=== PATIENT | male | born 1955 | race Hispanic/Latino ===

== ENCOUNTER 2020-11-05 15:00 | Emergency (ER) | payer BC ==
[~2020-11-05] VITALS: Ht 180.3 cm; Wt 115.2 kg
[2020-11-05] MEDS ORDERED: 0.9%NACL 1000ML 1,000 ML IV ONE ×2 (15:01→15:15)
[2020-11-05] MEDS ORDERED: ACETAMINOPHEN 500 MG TABLET PO ONE (15:15)
[2020-11-05 15:22] LABS: BASOPHILS % (AUTO) 0.2 % (0.0-5.0); EOSINOPHILS % (AUTO) 0.4 % (0.0-8.0); HEMATOCRIT 45.2 % (42-54); LYMPHOCYTES % (AUTO) 4.6 % (21.0-51.0); MONOCYTES % (AUTO) 6.1 % (3.0-13.0); NEUTROPHILS % (AUTO) 88.3 % (40.0-77.0); PLATELET COUNT (AUTO) 170 K/uL (130-400); RED BLOOD CELL COUNT(AUTO) 4.81 MIL/uL (4.50-6.20); RED CELL DISTRIBUTION WIDTH 14.6 % (11.0-15.5); WHITE BLOOD COUNT (AUTO) 13.4 K/uL (4.8-10.8)
[2020-11-05 15:38] LABS: CREATININE 1.3 mg/dL (0.5-1.5); POTASSIUM 3.7 mmol/L (3.5-5.1)
[2020-11-05 15:42] LABS: APPEARANCE,URINE Cloudy (CLEAR); BILIRUBIN,URINE Negative (NEGATIVE); COLOR,URINE Dark Yellow (YELLOW); GLUCOSE, URINE (UA) TRACE mg/dL (NEGATIVE); KETONES,URINE Trace mg/dL (NEGATIVE); LEUKOCYTE ESTERASE ,URINE Moderate (NEGATIVE); NITRATE,URINE Negative (NEGATIVE); OCCULT BLOOD,URINE Negative (NEGATIVE); PROTEIN,URINE POS 1+ mg/dL (NEGATIVE)
[2020-11-05 15:42] LABS: ALBUMIN 3.8 g/dL (3.5-5.0); BILIRUBIN,TOTAL 0.9 mg/dL (0.2-1.0); TOTAL PROTEIN, SERUM 7.6 g/dL (6.0-8.3)
[2020-11-05 15:56] LABS: BACTERIA,URINE Few /HPF (None Seen); MUCUS,URINE Moderate LPF (None Seen); SQUAMOUS EPITHELIAL CELL,UR Few /HPF (0-2)
[2020-11-05] MEDS ORDERED: CEFTRIAXONE 1G VIAL ONE (16:12)
[2020-11-05 16:19] VITALS: BP 104/57
[2020-11-05] MEDS ORDERED: CEFTRIAXONE 1G VIAL IVP SCH (16:30)
[2020-11-05] MEDS ORDERED: ACET-2247 PO (17:32)
[2020-11-05] MEDS ORDERED: CEPH500B PO (17:32)
[2020-11-05 17:34] VITALS: BP_SYST 100; BP_SYST 115; BP_DIAS 57; BP_DIAS 68
== END 2020-11-05 17:44 | disposition home or self-care (01) ==
LOC: EDH 15:00
DX: N39.0 Urinary tract infection, site not specified (principal); E86.0 Dehydration; I10 Essential (primary) hypertension; E10.9 Type 1 diabetes mellitus without complications; E78.00 Pure hypercholesterolemia, unspecified; Z79.899 Other long term (current) drug therapy; Z20.822 Contact with and (suspected) exposure to COVID-19
CPT/HCPCS: 36415; 71045; 80053; 81001; 83690; 85025; 86140; 87040 ×2; 87088; 87635; 87804 ×2; 87880; 93005; 96361; 96374; 99285; C9803; J0696; J7030

== ENCOUNTER 2022-10-04 20:56 | Emergency (ER) | payer BC, OTHER ==
[~2022-10-04] VITALS: Ht 180.3 cm; Wt 6.5 kg
[~2022-10-04 20:56] MED LIST: ACET-2247 PO; CEPH500B PO
[2022-10-04 23:03] LABS: BASOPHILS % (AUTO) 0.7 % (0.0-5.0); EOSINOPHILS % (AUTO) 2.8 % (0.0-8.0); HEMATOCRIT 46.8 % (42-54); LYMPHOCYTES % (AUTO) 22.3 % (21.0-51.0); MEAN CORPUSCULAR HEMOGLOBIN 31.5 pg (27.0-33.0); MEAN CORPUSCULAR HGB CONC 33.5 g/dL (32.0-36.0); MONOCYTES % (AUTO) 9.2 % (3.0-13.0); NEUTROPHILS % (AUTO) 64.5 % (40.0-77.0); PLATELET COUNT (AUTO) 176 K/uL (130-400); RED BLOOD CELL COUNT(AUTO) 4.98 MIL/uL (4.50-6.20); RED CELL DISTRIBUTION WIDTH 14.6 % (11.0-15.5); WHITE BLOOD COUNT (AUTO) 10.7 K/uL (4.8-10.8)
[2022-10-04 23:12] LABS: CREATININE 1.7 mg/dL (0.5-1.5); POTASSIUM 4.3 mmol/L (3.5-5.1)
[2022-10-04 23:16] LABS: TOTAL PROTEIN, SERUM 7.8 g/dL (6.0-8.3)
[2022-10-05] MEDS ORDERED: 0.9%NACL 1000ML 1,000 ML IV ONE
[2022-10-05] MEDS ORDERED: KETOROLAC 15MG/ML VIAL (15MG/ML) ONE (00:10)
[2022-10-05] MEDS ORDERED: KETO10TA2 PO (00:11)
[2022-10-05] MEDS ORDERED: KETOROLAC 15MG/ML VIAL (15MG/ML) IV ONE (00:30)
[2022-10-05 01:01] VITALS: BP 125/60
== END 2022-10-05 01:11 | disposition home or self-care (01) ==
LOC: EDH 20:56
DX: N20.0 Calculus of kidney (principal); I10 Essential (primary) hypertension; E11.9 Type 2 diabetes mellitus without complications; E78.00 Pure hypercholesterolemia, unspecified
CPT/HCPCS: 99285; 74176; 80053; 85025; 83605; 36415; 96374; 96361; J7030; J1885

== ENCOUNTER 2023-02-15 17:58 | Emergency (ER) | payer OTHER ==
[~2023-02-15] VITALS: Ht 182.9 cm; Wt 100.7 kg
[~2023-02-15 17:58] MED LIST changes: +KETO10TA2 PO
[2023-02-15 18:47] LABS: BASOPHILS # (AUTO) 0.06 K/uL (0.00-0.20); BASOPHILS % (AUTO) 0.7 % (0.0-5.0); EOSINOPHILS # (AUTO) 0.14 K/uL (0.00-0.70); EOSINOPHILS % (AUTO) 1.6 % (0.0-8.0); HEMATOCRIT 43.3 % (42-54); IMMATURE GRANULOCYTE ABSOLUTE 0.04 K/uL (0-1); LYMPHOCYTES # (AUTO) 0.5 K/uL (1.0-4.8); LYMPHOCYTES % (AUTO) 5.1 % (21.0-51.0); MEAN CORPUSCULAR HEMOGLOBIN 31.8 pg (27.0-33.0); MEAN CORPUSCULAR VOLUME 96.2 fL (79-99); MONOCYTES # (AUTO) 0.8 K/uL (0.1-1.0); MONOCYTES % (AUTO) 8.7 % (3.0-13.0); NEUTROPHILS # (AUTO) 7.4 K/uL (1.8-7.7); NEUTROPHILS % (AUTO) 83.4 % (40.0-77.0); PLATELET COUNT (AUTO) 178 K/uL (130-400); RED CELL DISTRIBUTION WIDTH 14.5 % (11.0-15.5); WHITE BLOOD COUNT (AUTO) 8.9 K/uL (4.8-10.8)
[2023-02-15 19:02] LABS: CREATININE 1.5 mg/dL (0.5-1.5); POTASSIUM 4.7 mmol/L (3.5-5.1)
[2023-02-15] MEDS ORDERED: 0.9%NACL 1000ML 1,000 ML IV STA (19:10)
[2023-02-15 19:11] LABS: ALBUMIN 3.7 g/dL (3.5-5.0); BILIRUBIN,TOTAL 1.1 mg/dL (0.2-1.0); MAGNESIUM 1.5 mg/dL (1.80-2.40); TOTAL PROTEIN, SERUM 7.4 g/dL (6.0-8.3)
[2023-02-15 19:17] LABS: B-TYPE NATRIURETIC PEPTIDE 221 pg/mL (0-100)
[2023-02-15 20:37] LABS: SARS-CoV-2, RNA, NAAT NEGATIVE SARS CoV-2 (NEGATIVE)
[2023-02-15 20:42] LABS: INFLUENZA TYPE A Negative For Type A (NEGATIVE); INFLUENZA TYPE B Negative For Type B (NEGATIVE)
[2023-02-15 22:24] LABS: APPEARANCE,URINE CLEAR (CLEAR); BILIRUBIN,URINE NEGATIVE (NEGATIVE); COLOR,URINE LIGHT-YELLOW (YELLOW); GLUCOSE, URINE (UA) NEGATIVE (NEGATIVE); KETONES,URINE NEGATIVE (NEGATIVE); LEUKOCYTE ESTERASE ,URINE NEGATIVE Leu/uL (NEGATIVE); NITRATE,URINE NEGATIVE (NEGATIVE); OCCULT BLOOD,URINE NEGATIVE (NEGATIVE); PH,URINE 5.5 (5.0-8.0); PROTEIN,URINE NEGATIVE (NEGATIVE); UROBILINOGEN,URINE 0.2 mg/dL (0.2-1.0)
[2023-02-15 22:36] LABS: ADD UA MICROSCOPIC NO
[2023-02-15 23:48] VITALS: BP 118/65; PULSE 83; RESP 18; O2SAT 97
== END 2023-02-15 23:52 | disposition home or self-care (01) ==
LOC: EDH 17:58
DX: E86.0 Dehydration (principal); E83.42 Hypomagnesemia; I10 Essential (primary) hypertension; E11.9 Type 2 diabetes mellitus without complications; E78.00 Pure hypercholesterolemia, unspecified; Z20.822 Contact with and (suspected) exposure to COVID-19; Z79.899 Other long term (current) drug therapy
CPT/HCPCS: 99285; 96360; 71045; 87635; 84443; 82550; 83735; 84484; 80053; 83880; 85025; 87804 ×2; 83605; 81003; 36415; 93005; C9803; J7030

== ENCOUNTER 2023-11-08 21:07 | Emergency (ER) | payer OTHER, MEDICARE ==
[~2023-11-08] VITALS: Ht 180.3 cm; Wt 106.6 kg
[2023-11-08 23:00] VITALS: BP 112/76; PULSE 88; RESP 16; O2SAT 99
== END 2023-11-08 23:11 | disposition home or self-care (01) ==
LOC: EDH 21:07
DX: S91.201A Unspecified open wound of right great toe with damage to nail, initial encounter (principal); E11.9 Type 2 diabetes mellitus without complications; I10 Essential (primary) hypertension; E78.00 Pure hypercholesterolemia, unspecified; Z79.899 Other long term (current) drug therapy; Z79.2 Long term (current) use of antibiotics; Z98.61 Coronary angioplasty status; W26.8XXA Contact with other sharp object(s), not elsewhere classified, initial encounter; Y93.F9 Activity, other caregiving; Y92.89 Other specified places as the place of occurrence of the external cause; Y99.8 Other external cause status
CPT/HCPCS: 99281

== ENCOUNTER 2025-01-20 08:29 | Emergency (ER) | payer OTHER, MEDICARE ==
[~2025-01-20] VITALS: Ht 180.3 cm; Wt 113.4 kg
--- NOTE | 2025-01-20 08:38 | ERN ---
General Chief Complaint: Wound Check Stated Complaint: WOUND TO LEFT ARM Time Seen by MD: 08:31 Source: patient History of Present Illness Initial Comments In his is a 69-year-old male coming in complaining of left arm wound. Per patient he was climbing some bricks down and hit himself in the left upper extremity. He is able to move his arm he states but there is tenderness in his abrasion in his left forearm. Allergies: Coded Allergies: No Known Allergies (Unverified Allergy, Unknown, 11/05/20) Home Meds Active Scripts Ketorolac Tromethamine (Ketorolac Tromethamine) 10 Mg Tablet, 10 MG PO Q6HPRN PRN for PAIN for 4 Days, #16 TAB Prov:TIM MANNING NP 10/05/22 Acetaminophen (Tylenol) 325 Mg Tablet, 650 MG PO QID, #50 TAB Prov:ELKE HUFF 11/05/20 Cephalexin Monohydrate (Keflex) 500 Mg Cap, 500 MG PO TID, #21 CAP Prov:ELKE HUFF 11/05/20 Past Medical History Past Medical History: Diabetes-Type II, High Cholesterol, Heart Disease, Hypertension, Other Medical History Other: HX OF TRIPLE BYPASS Past Surgical History: Other Surgical History Other: TRIPLE BYPASS SX Family History Family History: Negative Social History Social History: Negative ROS Dictation CONSTITUTIONAL: No chills, no fever, no weakness, no diaphoresis, no malaise. HEAD/FACE: No signs of trauma. EENT: No eye pain, no blurred vision, no tearing, no double vision, no ear pain, no ear discharge, no nose pain, no nasal congestion, no throat pain, no throat swelling, no mouth pain. RESPIRATORY: No cough, no orthopnea, no SOB, no stridor, no wheezing. CARDIOVASCULAR: No chest pain, no edema, no palpitations, no syncope. GASTROINTESTINAL/ABDOMINAL: No abdominal pain, no constipation, no diarrhea, no nausea, no vomiting. GENITOURINARY: No abnormal discharge, no dysuria, no frequent urination, no hematuria. No complaints of pain in the genitals. MUSCULOSKELETAL: No back pain, no gout, no joint pain, no joint swelling, no muscle pain, no muscle stiffness, no neck pain. INTEGUMENTARY: No change in color, no change in hair/nails, no dryness, lesion, no lumps, no rash. NEUROLOGICAL/PSYCH: No anxiety, not depressed, no emotional problem, no headache, no numbness, no pre-existing deficit, no history of seizures, no tremors, no weakness. HEMATOLOGIC/LYMPHATIC: Not anemic, no history of blood clots, no apparent bleeding, no bruising, glands not swollen. All Systems Negative, Except as Noted. Physical Exam Physical Exam Dictation VITAL SIGNS: Reviewed. GENERAL APPEARANCE: Alert, oriented x3, no acute distress, obese. HEAD AND FACE: Non-traumatic. EYES: PERRL, pink conjunctivas, eyelid no trauma, anterior chamber clear. EARS: Pinnas intact and no signs of trauma or erythema. Ear canals clear and no discharge. TMs no erythema. NOSE: No discharge, no bleeding. OROPHARYNX: Mouth normal, teeth no caries, tongue pink. Pharynx clear, no erythema. Tonsils no exudates, no abscesses noted. Mucous membrane moist. NECK: Supple, non-tender, no thyromegaly, no masses, no JVD, no bruits. BREAST: Deferred. CHEST: No tenderness, no crepitus, no paradoxical movement, no retractions. LUNGS: Clear, well-ventilated, symmetric, no rales, no wheezing, no rhonchi, no stridor, good breath sounds bilaterally. HEART: Regular rate, regular rhythm, no murmur, no gallops. VASCULAR: No peripheral edema. ABDOMEN: Soft, positive bowel sounds, nondistended, no guarding, nontender, no rebound, no masses no hepatomegaly, no splenomegaly, no Valencia's sign, no hernias. RECTAL: Deferred. GENITAL: Deferred. NEUROLOGICAL: Normal speech, gross motor function intact, gross sensory function intact. MUSCULOSKELETAL: Neck nontender, full range of motion, back nontender, full range of motion. EXTREMITIES: Nontender, full range of motion. SKIN: Color pink, dry, no turgor, no rash, no lacerations, abrasions, contusions. LYMPHATICS: Deferred. Results Laboratory and Microbiology Labs Reviewed?: Yes EKG/XRAY/US/CT/MRI X-RAY Comment IMAGING REPORT Signed PATIENT: NIKOLAI NUGENT MR#: [id number] : 1955 SEX: M AGE: 69 LOCATION: ED ORDER 5 STATUS: REG ER REPORT#: [id number] SERVICE 4 REASON: wounds ORDERING PHYSICIAN: SOLANGE DUMAS MD PROCEDURE: FORARML - FOREARM 2VWS LT EXAM: CR right Forearm, 4 View. CLINICAL HISTORY: wounds COMPARISON: None provided. FINDINGS: BONES: No acute fracture or aggressive appearing osseous lesion. JOINTS: No dislocation. The joint spaces are normal. SOFT TISSUES: The soft tissues are unremarkable. IMPRESSION: No acute osseous abnormality. /[place] DICTATED BY: ILANA ARRIOLA Jr., MD DATE: 01/20/251054 ELECTRONICALLY SIGNED BY: ILANA ARRIOLA Jr., MD DATE: 01/20/251054 IMAGING REPORT Signed PATIENT: NIKOLAI NUGENT MR#: [id number] : 1955 SEX: M AGE: 69 LOCATION: [facility] ORDER 5 STATUS: REG [facility] REPORT#: [id number] SERVICE 4 REASON: wounds ORDERING PHYSICIAN: SOLANGE DUMAS MD PROCEDURE: [id number] - ANKLE 2VWS LT EXAM: CR right ankle, 2 View. CLINICAL HISTORY: wounds COMPARISON: None provided. FINDINGS: There are a few metallic clips projecting over the soft tissues of the distal posterior medial leg. BONES: No acute fracture or aggressive appearing osseous lesion. JOINTS: The joint spaces appear within normal limits. No dislocation. No radiographic evidence of a joint effusion. SOFT TISSUES: The soft tissues are unremarkable. IMPRESSION: No acute osseous abnormality. /[place] DICTATED BY: ILANA ARRIOLA Jr., MD DATE: 01/20/251051 ELECTRONICALLY SIGNED BY: ILANA ARRIOLA Jr., MD DATE: 01/20/251051 MDM MDM: Differential diagnosis: Fall, skin tears, Rationale: Tests considered and ordered secondary to shared decision making include: Previous outside records reviewed: Old ER visits. Risk of complication and/or morbidity or mortality of patient management: None Medications-Per medication reconciliation Need for hospitalization: Patient does not meet criteria for hospitalization. Need for emergency major/minor surgery: No Patient is a 69-year-old gentleman coming in after he had a fall. Per patient he tripped on complex landed in his left forearm skin tear skin tear and patient did receive a tetanus and some antibiotics. X-ray did not disclose acute findings. Patient will be discharged in stable condition with a diagnosis of skin tears and fall . ED Course Orders Procedure Category Date Status Time Tetanus,Diphtheria PHA 01/20/25 Complete Tox [Adult] (Diphther 09:00 Forearm 2vws Lt RAD 01/20/25 Resulted 08:55 Ankle 2vws Lt RAD 01/20/25 Resulted 08:55 Ceftriaxone 1g Vial PHA 01/20/25 Complete (Rocephine 1g Inj) 10:00 Bacitracin PHA 01/20/25 Complete (Bacitracin) 10:07 Current Medications Medications (Trade) Dose Ordered Sig/Shira Route PRN Reason Start Time Stop Time Status Last Admin Dose Admin Bacitracin (Bacitracin) 1 each STK-MED ONCE TP 01/20/25 10:07 01/20/25 10:07 DC Ceftriaxone Sodium (ROCEphine 1G INJ) 1 gm ONCE ONCE IM 01/20/25 10:00 01/20/25 10:01 DC Tetanus/ Diphtheria Toxoids Adsorbed (DiphthERIA-teTANUS TOXOID [ADULT]/ DECAVAC) 0.5 ml ONCE ONCE IM 01/20/25 09:00 01/20/25 09:01 DC 01/20/25 09:27 Vital Signs Date Time Temp Pulse Resp B/P (MAP) Pulse Ox O2 Delivery O2 Flow Rate FiO2 01/20/25 08:30 97.9 77 16 116/77 99 Room Air* 0 21 01/20/25 08:30 97.9 77 16 116/77 99 Room Air DX & DISP Disposition: Discharge Departure Impression: Primary Impression: Fall Additional Impression: Skin tear Condition: Stable Scripts Cephalexin Monohydrate (Keflex) 500 Mg Cap 1 CAP PO TID for 10 Days, #30 CAP 0 Refills Prov: SOLANGE DUMAS MD 01/20/25 Additional Instructions: FOLLOW-UP WITH PRIMARY CARE PROVIDER IN 1 TO 2 DAYS. TAKE MEDICATIONS DIRECTED HERE IN THE EMERGENCY ROOM. OKAY TO CONTINUE HOME MEDICATIONS UNLESS OTHERWISE DISCUSSED DURING YOUR VISIT IN THE EMERGENCY ROOM TODAY. RETURN TO YOUR NEAREST EMERGENCY ROOM IF SYMPTOMS WORSEN OR IF THERE IS NO IMPROVEMENT. CALL 911 IF YOU NEED IMMEDIATE ASSISTANCE. TAKE TYLENOL [id number] NEEDED AND IF NO CONTRAINDICATIONS ARE PRESENT. INCREASE ORAL HYDRATION. A WOUND CULTURE OR URINE CULTURE WAS ORDERED HERE IN THE EMERGENCY ROOM DEPARTMENT PLEASE FOLLOW-UP WITH PRIMARY CARE PROVIDER AND ADVISE THEM TO GET REPORTS FROM OUR FACILITY. IF YOU HAD ANY CHENG WRAP/SPLINTS THAT WERE APPLIED HERE, PLEASE DO NOT REMOVE THEM UNTIL YOU SEE YOUR PRIMARY CARE OR SPECIALTY. Referrals: Referrals: SELF,REFERRAL (PCP) TEA GERARD MD Time of Disposition: 10:11 SOLANGE DUMAS MD Jan 20, 2025 08:38
--- NOTE | 2025-01-20 09:53 | HMCIMG ---
EXAM: CR right ankle, 2 View. CLINICAL HISTORY: wounds COMPARISON: None provided. FINDINGS: There are a few metallic clips projecting over the soft tissues of the distal posterior medial leg. BONES: No acute fracture or aggressive appearing osseous lesion. JOINTS: The joint spaces appear within normal limits. No dislocation. No radiographic evidence of a joint effusion. SOFT TISSUES: The soft tissues are unremarkable. IMPRESSION: No acute osseous abnormality. /[place]
--- NOTE | 2025-01-20 09:56 | HMCIMG ---
EXAM: CR right Forearm, 4 View. CLINICAL HISTORY: wounds COMPARISON: None provided. FINDINGS: BONES: No acute fracture or aggressive appearing osseous lesion. JOINTS: No dislocation. The joint spaces are normal. SOFT TISSUES: The soft tissues are unremarkable. IMPRESSION: No acute osseous abnormality. /[place]
[2025-01-20] MEDS ORDERED: CEPH500B PO (10:11)
[2025-01-20] MEDS: BACITRACIN 1 EACH PACKET TP ONE (10:26)
[2025-01-20] MEDS ORDERED: BACITRACIN 1 EACH PACKET TP ONE (10:26)
[2025-01-20 10:37] VITALS: BP 132/71; PULSE 72; RESP 16; TEMP 97.2; O2SAT 97
== END 2025-01-20 10:54 | disposition home or self-care (01) ==
LOC: EDH 08:29
DX: S51.812A Laceration without foreign body of left forearm, initial encounter (principal); E11.9 Type 2 diabetes mellitus without complications; E78.00 Pure hypercholesterolemia, unspecified; I11.9 Hypertensive heart disease without heart failure; Z95.1 Presence of aortocoronary bypass graft; W22.8XXA Striking against or struck by other objects, initial encounter; Y93.89 Activity, other specified; Y92.89 Other specified places as the place of occurrence of the external cause; Y99.8 Other external cause status
CPT/HCPCS: 99284; 90714; 73600; 73090; 96372; 90471; J0696